=== PATIENT | male | born 1965 | race Asian ===

== ENCOUNTER 2018-11-18 22:32 | Emergency (ER) | payer MEDICARE, BC ==
[~2018-11-18] VITALS: Ht 167.6 cm; Wt 95.3 kg
[2018-11-18] MEDS ORDERED: SODIUM POLYSTYRENE SULF (23:44)
[2018-11-18] MEDS ORDERED: ALLOPURINOL 300 MG TABLET (23:44)
[2018-11-18] MEDS ORDERED: OLMESARTAN MEDOXOMIL 40 MG TAB (23:44)
[2018-11-18] MEDS ORDERED: SEVELAMER CARBONATE 800 MG TAB (23:44)
[2018-11-18] MEDS ORDERED: LOVASTATIN 40 MG TABLET (23:44)
[2018-11-18] MEDS ORDERED: CALCIUM ACETATE 667 MG CAPSULE (23:44)
[2018-11-18] MEDS ORDERED: LEVOTHYROXINE 150 MCG TABLET (23:44)
[2018-11-18] MEDS ORDERED: AMLODIPINE BESYLATE 10 MG TAB (23:44)
[2018-11-18] MEDS ORDERED: RENA VITE (23:44)
[2018-11-18] MEDS ORDERED: CALCITRIOL 0.25 MCG CAPSULE (23:44)
[2018-11-19] MEDS ORDERED: MORPHINE SULFATE 4 MG/1 ML DISP.SYRIN IM ONE
[2018-11-19] MEDS ORDERED: MORPHINE SULFATE 4 MG/1 ML DISP.SYRIN ONE (00:15)
[2018-11-19] MEDS ORDERED: MORPHINE SULFATE 2 MG/1 ML DISP.SYRIN ONE (00:16)
--- NOTE | 2018-11-19 02:12 | NUR ---
Patient discharged to home in stable conditon. Written and verbal after care instructions given. Patient verbalizes understanding of instructions. Pt walked out of ER via crutches with brother who will drive pt home. Pt appears in no apparent distress. left knee immobilizer placed. Pt shows return demonstration on use of crutches. No acute distres noted.
[2018-11-19 02:21] VITALS: BP 154/92
== END 2018-11-19 02:22 | disposition home or self-care (01) ==
LOC: ER 22:32
DX: S80.02XA Contusion of left knee, initial encounter (principal); E11.9 Type 2 diabetes mellitus without complications; E78.5 Hyperlipidemia, unspecified; E03.9 Hypothyroidism, unspecified; Z79.899 Other long term (current) drug therapy; W01.0XXA Fall on same level from slipping, tripping and stumbling without subsequent striking against object, initial encounter; Y93.89 Activity, other specified; Y92.89 Other specified places as the place of occurrence of the external cause; Y99.8 Other external cause status
CPT/HCPCS: 29505; 73564; 73700; 96372; 99284; J2270 ×2; A4663